=== PATIENT | male | born 1995 | race Hispanic/Latino ===

== ENCOUNTER 2022-10-24 09:10 | Emergency (ER) | payer OTHER ==
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
--- NOTE | 2022-10-24 10:46 | RAD REPORT ---
EXAM DESCRIPTION: RAD - Hand Right 3 View - 10/24/2022 9:53 am CLINICAL HISTORY: Right hand pain status post injury FINDINGS: No fracture or dislocation is seen.
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
[2022-10-24 11:41] VITALS: BP 126/74; TEMP 97.9; O2SAT 100
== END 2022-10-24 11:37 | disposition home or self-care (01) ==
LOC: ER 09:10
DX: S00.83XA Contusion of other part of head, initial encounter (principal); S60.221A Contusion of right hand, initial encounter; V47.5XXA Car driver injured in collision with fixed or stationary object in traffic accident, initial encounter
CPT/HCPCS: 70450; 72125; 99284